=== PATIENT | female | born 1955 | race African-American/Black ===

== ENCOUNTER 2021-11-28 13:19 | Inpatient (IN) ==
[2021-11-28] MEDS ORDERED: DEXTROSE 50% 25 GM/50 ML SYRINGE IV ONE (15:52)
[2021-11-28 16:05] LABS: Calcium 8.6 MG/DL (8.5-10.1); Free T4 (Free Thyroxine) 0.78 NG/DL (0.76-1.46); Osmolality,Calculated 276.4 MOS/KG (273-304); Potassium 3.1 MMOL/L (3.5-5.1); Thyroid Stimulating Hormone 1.2 uIU/ml (0.358-3.74)
[2021-11-28] MEDS: DEXTROSE 5% NACL 0.45% 1,000 ML IV SCH (16:45)
[2021-11-28] MEDS ORDERED: POTASSIUM CHLORIDE 20 MEQ TABLET PO STA (17:34)
[2021-11-28] MEDS ORDERED: GLUCAGON 1 MG VIAL IM PRN (17:44)
[2021-11-28] MEDS ORDERED: ACETAMINOPHEN 325 MG TABLET PO PRN (17:45)
[2021-11-28] MEDS ORDERED: ONDANSETRON 4 MG/2 ML VIAL IV PRN (17:45)
[2021-11-28] MEDS ORDERED: ALBUTEROL/IPRATROPIUM 3 ML NEB RESP TX PRN (17:45)
[2021-11-28] MEDS ORDERED: MAGNESIUM SULF RIDER 2 GM/50 ML PREMIX IV PRN (17:49)
[2021-11-28] MEDS ORDERED: MAGNESIUM SULF RIDER 4 GM/100 ML PREMIX IV PRN (17:49)
[2021-11-28] MEDS ORDERED: DEXTROSE 10% 250 ML BAG IV PRN (18:03)
[2021-11-28] MEDS ORDERED: DEXTROSE 50% 25 GM/50 ML VIAL IV ONE (18:16)
[2021-11-28] MEDS: ENOXAPARIN 40 MG/0.4 ML SYRINGE SUBCUT SCH (22:52)
[2021-11-29 06:41] LABS: Basophils # 0.1 10*3/uL (0.0-0.2); Basophils % 0.5 % (0.0-0.8); Eosinophils # 0.1 10*3/uL (0.0-0.87); Eosinophils % 1.5 % (0.00-10.9); Hematocrit 35.9 VOL% (35.7-47.0); Hemoglobin 11.6 GM/DL (12.0-16.0); Immature Granulocytes % 1.1 %; Lymphocytes # 2.6 10*3/uL (1.4-4.0); Lymphocytes % 27.4 % (21.3-54.2); Mean Corpuscular HGB Conc 32.3 GM/DL (32-36); Mean Corpuscular Volume 96.8 FL (87-102); Monocytes % 7.2 % (1.7-12.7); Neutrophils % 62.3 % (38.7-73.9); Platelet Count 206 T/CUMM (130-400); Red Blood Count 3.71 MC/CUMM (3.8-5.5); Red Cell Distribution Width 15.5 % (9.3-17.3); White Blood Count 9.4 T/CUMM (4-12)
[2021-11-29 07:03] LABS: Alanine Aminotransferase 19 U/L (13-56); Albumin 2.4 G/DL (3.4-5.0); Alkaline Phosphatase 52 U/L (45-117); Aspartate Amino Transferase 71 U/L (0-37); Bilirubin,Total < 0.39 MG/DL (0.20-1.00); Blood Urea Nitrogen 19 MG/DL (7-18); Calcium 8.3 MG/DL (8.5-10.1); Carbon Dioxide 28 MMOL/L (21-32); Estimated Glom Filtration Rate 81 ML/MIN; Glucose 95 MG/DL (74-106); Sodium 136 MMOL/L (136-145); Total Protein 6.2 G/DL (6.4-8.2)
[2021-11-29 07:05] LABS: Potassium 7.2 MMOL/L (3.5-5.1)
[2021-11-29 08:22] LABS: Platelet Estimate Normal
[2021-11-29 08:23] LABS: Anisocytosis Slight; Macrocytosis Slight
[2021-11-29 08:23] LABS: Potassium 3.7 MMOL/L (3.5-5.1)
[2021-11-29] MEDS: lisinopriL 5 MG TABLET PO SCH (08:42)
[2021-11-29] MEDS: predniSONE 10 MG TABLET PO SCH (08:42)
[2021-11-29] MEDS: FENOFIBRATE 145 MG TABLET PO SCH (08:42)
[2021-11-29] MEDS: PANTOPRAZOLE 40 MG TABLET PO SCH (08:42)
[2021-11-29] MEDS ORDERED: NON-FORMULARY MEDICATION (Omeprazole 20 mg Capsule,Delayed Release(Dr/Ec)) PO SCH (09:00)
[2021-11-29] MEDS: [UNRECOGNIZED DRUG - OTHER] INH SCH (19:07)
[2021-11-29] MEDS: FLUTICASONE FUROATE VILANTEROL INH SCH (19:07)
[2021-11-29] MEDS: DEXTROSE 5% NACL 0.45% 1,000 ML IV SCH (23:04)
[2021-11-29] MEDS: ENOXAPARIN 40 MG/0.4 ML SYRINGE SUBCUT SCH (23:05)
[2021-11-30] MEDS: DEXTROSE 5% NACL 0.45% 1,000 ML IV SCH (03:57)
[2021-11-30 05:11] LABS: Basophils % 0.3 % (0.0-0.8); Eosinophils # 0.1 10*3/uL (0.0-0.87); Eosinophils % 0.8 % (0.00-10.9); Hematocrit 33.9 VOL% (35.7-47.0); Hemoglobin 11.1 GM/DL (12.0-16.0); Immature Granulocytes % 0.7 %; Immature Granulocytes Absolute 0.08 #; Lymphocytes # 2.5 10*3/uL (1.4-4.0); Lymphocytes % 22.6 % (21.3-54.2); Mean Corpuscular HGB Conc 32.7 GM/DL (32-36); Mean Corpuscular Volume 95.2 FL (87-102); Mean Platelet Volume 10.5 FL (9.6-12.0); Neutrophils % 67.6 % (38.7-73.9); Platelet Count 316 T/CUMM (130-400); Red Blood Count 3.56 MC/CUMM (3.8-5.5); Red Cell Distribution Width 14.9 % (9.3-17.3); White Blood Count 11.1 T/CUMM (4-12)
[2021-11-30 05:25] LABS: Calcium 8.6 MG/DL (8.5-10.1)
[2021-11-30 05:44] LABS: Potassium 3.8 MMOL/L (3.5-5.1)
[2021-11-30 05:45] LABS: Osmolality,Calculated 280.5 MOS/KG (273-304)
[2021-11-30] MEDS: PANTOPRAZOLE 40 MG TABLET PO SCH (10:26)
[2021-11-30] MEDS: FENOFIBRATE 145 MG TABLET PO SCH (10:26)
[2021-11-30] MEDS: [UNRECOGNIZED DRUG - OTHER] INH SCH (10:26)
[2021-11-30] MEDS: FLUTICASONE FUROATE VILANTEROL INH SCH (10:26)
[2021-11-30] MEDS: predniSONE 10 MG TABLET PO SCH (10:26)
[2021-11-30] MEDS: lisinopriL 5 MG TABLET PO SCH (10:27)
[2021-11-30 11:45] VITALS: BP 103/51
== END 2021-11-30 13:48 | disposition home or self-care (01) | DRG 638 ==
LOC: N.ED 13:19 → N.EDINP 17:17 → N.5E 18:10
PROVIDERS: ADMIT Hospitalist; ATTEND Hospitalist